=== PATIENT | female | born 1995 | race Caucasian/White ===

== ENCOUNTER 2023-10-09 21:28 | Emergency (ER) | payer MEDICAID ==
[~2023-10-09] VITALS: Ht 162.6 cm; Wt 81.6 kg
[2023-10-09] MEDS ORDERED: predniSONE 10 MG TABLET PO ONE (23:00)
[2023-10-09] MEDS ORDERED: FAMOTIDINE (20 MG) 20 MG TABLET PO ONE (23:00)
[2023-10-09] MEDS ORDERED: diphenhydrAMINE HCL 50 MG CAPSULE PO ONE (23:00)
[2023-10-09] MEDS ORDERED: diphenhydrAMINE HCL 50 MG CAPSULE ONE (23:13)
[2023-10-09] MEDS ORDERED: predniSONE 20 MG TABLET ONE (23:13)
[2023-10-09] MEDS ORDERED: FAMOTIDINE (20 MG) 20 MG TABLET ONE (23:13)
[2023-10-10] MEDS ORDERED: FAMO20TA8 PO (00:23)
[2023-10-10] MEDS ORDERED: DIPH25CA83 PO (00:23)
[2023-10-10] MEDS ORDERED: PRED20TA PO (00:23)
[2023-10-10 00:37] VITALS: BP 110/71; TEMP 98.2; O2SAT 100
== END 2023-10-10 00:38 | disposition home or self-care (01) ==
LOC: ER 21:31
DX: L50.9 Urticaria, unspecified (principal)
CPT/HCPCS: 99284; Q0163; J7512